=== PATIENT | female | born 1945 | race Caucasian/White ===

== ENCOUNTER 2018-04-08 09:11 | Emergency (ER) | payer MEDICARE ==
[~2018-04-08] VITALS: Ht 152.4 cm; Wt 70.0 kg
[~2018-04-08 09:11] MED LIST: ALENDRONATE70 MG PO; ALFALFA650 MG OR; AMOXICILLIN500 MG PO; BIOTIN1 MG PO; CALCIUM +D PO; CALCIUM600 M2 PO; CHOND OR; CIPRO500 MG PO; CIPROFLOXACN500 MG PO; EC-NAPROSYN500 MG OR; FLUTICASONE50 MCG; FOSAMAX70 MG PO; GLUCOS OR; KEFLEX500 MG PO; MEDDOSEPAK PO; MILTAB #1 OR; NAPROXEN375 MG PO; PRILOSEC40 MG PO; PROAIR HFA IN; TRANSDERM-SCOP1.5 MG TD; VITAMIN E PO; ZITHROMAX250 MG PO; ZOFRAN ODT4 MG PO
[2018-04-08 09:41] LABS: HEMATOCRIT 45.1 % (37.0-47.0); HEMOGLOBIN 14.5 g/dl (12.0-16.0); IMMATURE GRANULOCYTES 0.1 % (0.0-1.0); MEAN CELL VOLUME 91.9 fL CALC (80.0-100.0); MEAN CORPUSCULAR HGB 29.5 pG CALC (26.0-32.0); MEAN CORPUSCULAR HGB CONC 32.2 g/L CALC (32.0-36.0); NEUT# 4.75 thou/uL (2.00-7.15); RED BLOOD COUNT 4.91 mill/uL (4.20-5.60); RED CELL DISTRI WIDTH 13.6 % (11.5-15.5)
[2018-04-08 10:00] LABS: ANION GAP 13 (6-22 (CALC)); BUN 9 mg/dL (8-23); BUN/CREATININE RATIO 14 (12-20 (CALC)); CARBON DIOXIDE 27 mmol/l (22-30); CHLORIDE 105 mmol/l (95-108); CREATININE 0.6 mg/dL (0.5-1.0); GFR > 60 ML/MIN (>=60 (CALC)); GFR FOR AFR.AMER. > 60 ML/MIN (>=60 (CALC)); POTASSIUM 4.1 mmol/l (3.5-5.1); SODIUM 141 mmol/l (137-146)
[2018-04-08] MEDS ORDERED: PREDNISONE50 MG PO (10:24)
[2018-04-08] MEDS ORDERED: ZPAK PO (10:24)
[2018-04-08 10:30] VITALS: BP 125/64
== END 2018-04-08 10:37 | disposition home or self-care (01) ==
LOC: ED 09:11
PROVIDERS: Family Medicine
DX: J44.1 Chronic obstructive pulmonary disease with (acute) exacerbation (principal); R06.02 Shortness of breath